=== PATIENT | male | born 1955 | race Caucasian/White ===

== ENCOUNTER 2019-06-25 13:16 | Emergency (ER) | payer OTHER ==
[~2019-06-25] VITALS: Ht 193 cm; Wt 125.6 kg
[2019-06-25] MEDS ORDERED: OMEPRAZOLE20 MG PO (13:34)
[2019-06-25] MEDS ORDERED: ATEN50 PO (13:34)
[2019-06-25] MEDS ORDERED: SALS750 PO (13:34)
[2019-06-25] MEDS ORDERED: Aspir 8181 MG PO (13:34)
[2019-06-25 13:43] LABS: BASOPHILS ABSOLUTE AUTO 0.02 K/mm3 (0.00-0.23); BASOPHILS PERCENT AUTO 0 % (0-2); EOSINOPHILS ABSOLUTE AUTO 0.43 K/mm3 (0.00-0.68); EOSINOPHILS PERCENT AUTO 7 % (0-6); Hematocrit 44.9 % (37.0-53.0); Hemoglobin 14.8 g/dL (13.5-17.5); IMMATURE GRAN ABSOLUTE AUTO 0.07 K/mm3 (0.00-0.10); IMMATURE GRAN PERCENT AUTO 1 % (0-1); LYMPHOCYTES ABSOLUTE AUTO 1.76 K/mm3 (0.84-5.20); LYMPHOCYTES PERCENT AUTO 30 % (21-46); MONOCYTES ABSOLUTE AUTO 0.58 K/mm3 (0.16-1.47); MONOCYTES PERCENT AUTO 10 % (4-13); Mean Corpuscular Volume 97 fL (80-100); Mean Platelet Volume 10.4 fL (9.1-12.4); NEUTROPHILS ABSOLUTE AUTO 2.94 K/mm3 (1.96-9.15); NEUTROPHILS PERCENT AUTO 51 % (41-73); Platelet Count 247 K/mm3 (150-400); RDW Coefficient Variation 12.3 % (11.7-14.2); RDW Standard Deviation 44.1 fL (35.1-46.3); Red Blood Cell Count 4.62 M/mm3 (4.30-5.90)
[2019-06-25 13:58] LABS: Alanine Aminotransfer (ALT/SGP 57 U/L (12-78); Albumin, Blood 4.1 g/dL (3.4-5.0); Albumin/Globulin Ratio 1.1 (0.8-1.8); Alk Phos 64 U/L (50-136); Anion Gap 5 mmol/L (6-16); Aspartate Aminotrans (AST/SGOT 27 U/L (12-37); Bilirubin, Total 0.5 mg/dL (0.1-1.0); Blood Urea Nitrogen 16 mg/dL (8-24); Bun/Creatinine Ratio 17.3 (12.0-20.0); CO2, Blood 26 mmol/L (21-32); Calcium, Blood 9.2 mg/dL (8.5-10.1); Chloride, Blood 107 mmol/L (98-108); Creatinine, Blood 0.93 mg/dL (0.60-1.20); Globulin, Blood 3.7 g/dL (2.2-4.0); Glomerular Filtration Rate >60 (60-); Glucose, Blood 78 mg/dL (70-99); Potassium, Blood 4.2 mmol/L (3.5-5.5); Sodium, Blood 138 mmol/L (136-145); Total Protein, Blood 7.8 g/dL (6.4-8.2)
== END 2019-06-25 17:05 | disposition home or self-care (01) ==
LOC: ER 13:16
PROVIDERS: Emergency Medicine
DX: R42 Dizziness and giddiness (principal); Z79.899 Other long term (current) drug therapy; Z79.82 Long term (current) use of aspirin; I10 Essential (primary) hypertension; K21.9 Gastro-esophageal reflux disease without esophagitis
CPT/HCPCS: 71046; 80053; 83880; 84484; 85025; 93005; 93010; 96360; 99284-25; J7030

== ENCOUNTER 2023-07-31 13:10 | Day surgery (SDC) | payer OTHER ==
[~2023-07-31] VITALS: Ht 193 cm; Wt 120.0 kg
[~2023-07-31 13:10] MED LIST: ATEN50 PO; Aspir 8181 MG PO; GABA300 PO; OMEPRAZOLE20 MG PO; SALS750 PO
[2023-07-31] MEDS ORDERED: FAMO20 PO (14:04)
[2023-07-31] MEDS ORDERED: Prozac20 MG PO (14:23)
[2023-07-31] MEDS ORDERED: Bupropion HCl75 MG PO (14:24)
[2023-07-31] MEDS ORDERED: AMLO5 PO (14:25)
[2023-07-31] MEDS ORDERED: ROSU10TA PO (14:25)
[2023-07-31 15:16] VITALS: BP 136/91
--- NOTE | 2023-07-31 15:23 | NUR ---
07/31/23 1523 JAVIER ISAAC IV REMOVED. WNL. NOHEMY WELL. CANNULA INTACT
== END 2023-07-31 15:36 | disposition home or self-care (01) ==
LOC: ORSCSDS 13:10
PROVIDERS: Ophthalmology
PROC: 08RJ3JZ Replacement of Right Lens with Synthetic Substitute, Percutaneous Approach (ICD-10-PCS; principal; 2023-07-31 14:30)
DX: H25.13 Age-related nuclear cataract, bilateral (principal); I12.9 Hypertensive chronic kidney disease with stage 1 through stage 4 chronic kidney disease, or unspecified chronic kidney disease; G62.9 Polyneuropathy, unspecified; N18.2 Chronic kidney disease, stage 2 (mild); E66.9 Obesity, unspecified; Z68.32 Body mass index [BMI] 32.0-32.9, adult; Z87.891 Personal history of nicotine dependence; I73.89 Other specified peripheral vascular diseases
CPT/HCPCS: J2250; J3010; J3301; J7040; V2632

== ENCOUNTER 2023-08-07 13:14 | Day surgery (SDC) | payer OTHER ==
[~2023-08-07] VITALS: Ht 193 cm; Wt 121.8 kg
[~2023-08-07 13:14] MED LIST changes: +AMLO5 PO; +Bupropion HCl75 MG PO; +FAMO20 PO; +Prozac20 MG PO; +ROSU10TA PO
--- NOTE | 2023-08-07 13:39 | NUR ---
08/07/23 1339 Judy Oakes [address]3 [address] AT 1336
[2023-08-07 14:53] VITALS: BP 150/95
--- NOTE | 2023-08-07 14:54 | NUR ---
08/07/23 1454 JAVIER ISAAC IV REMOVED. NOHEMY WELL. CANNULA INTACT. WNL
== END 2023-08-07 15:05 | disposition home or self-care (01) ==
LOC: ORSCSDS 13:14
PROVIDERS: Ophthalmology
PROC: 08RK3JZ Replacement of Left Lens with Synthetic Substitute, Percutaneous Approach (ICD-10-PCS; principal; 2023-08-07 14:30)
DX: H25.12 Age-related nuclear cataract, left eye (principal); H52.202 Unspecified astigmatism, left eye; Z96.1 Presence of intraocular lens; I12.9 Hypertensive chronic kidney disease with stage 1 through stage 4 chronic kidney disease, or unspecified chronic kidney disease; N18.2 Chronic kidney disease, stage 2 (mild); Z79.82 Long term (current) use of aspirin; Z79.899 Other long term (current) drug therapy
CPT/HCPCS: J2250; J3010; J3301; J7040; V2632

== ENCOUNTER 2024-08-07 13:15 | Emergency (ER) | payer OTHER ==
[~2024-08-07] VITALS: Ht 193 cm; Wt 121.5 kg
[2024-08-07 13:55] LABS: BASOPHILS ABSOLUTE AUTO 0.02 K/mm3 (0.00-0.23); BASOPHILS PERCENT AUTO 0 % (0-2); EOSINOPHILS ABSOLUTE AUTO 0.24 K/mm3 (0.00-0.68); EOSINOPHILS PERCENT AUTO 4 % (0-6); Hematocrit 42.2 % (37.0-53.0); Hemoglobin 13.9 g/dL (13.5-17.5); IMMATURE GRAN ABSOLUTE AUTO 0.03 K/mm3 (0.00-0.10); IMMATURE GRAN PERCENT AUTO 1 % (0-1); LYMPHOCYTES ABSOLUTE AUTO 0.82 K/mm3 (0.84-5.20); LYMPHOCYTES PERCENT AUTO 14 % (21-46); MONOCYTES ABSOLUTE AUTO 0.62 K/mm3 (0.16-1.47); MONOCYTES PERCENT AUTO 11 % (4-13); Mean Corpuscular HGB 32.1 pg (26.0-34.0); Mean Corpuscular HGB Conc 32.9 g/dL (31.5-36.5); Mean Corpuscular Volume 98 fL (80-100); Mean Platelet Volume 9.4 fL (9.1-12.4); NEUTROPHILS ABSOLUTE AUTO 4.02 K/mm3 (1.96-9.15); NEUTROPHILS PERCENT AUTO 70 % (41-73); Platelet Count 239 K/mm3 (150-400); RDW Coefficient Variation 12.5 % (11.7-14.2); Red Blood Cell Count 4.33 M/mm3 (4.30-5.90); White Blood Cell Count 5.75 K/mm3 (4.00-11.30)
[2024-08-07 14:14] LABS: Albumin, Blood 4.2 g/dL (3.4-5.0); Albumin/Globulin Ratio 1.2 (0.8-1.8); Bilirubin, Total 1.4 mg/dL (0.1-1.0); Bun/Creatinine Ratio 13.2 (12.0-20.0); Calcium, Blood 9.8 mg/dL (8.5-10.1); Creatinine, Blood 1.29 mg/dL (0.60-1.20); Globulin, Blood 3.6 g/dL (2.2-4.0); Potassium, Blood 4.4 mmol/L (3.5-5.5); Total Protein, Blood 7.8 g/dL (6.4-8.2)
[2024-08-07] MEDS ORDERED: LORATADINE10 M1 PO (15:36)
[2024-08-07] MEDS ORDERED: Budeprion Xl300 MG PO (15:36)
[2024-08-07] MEDS ORDERED: ASPI81CH PO (15:36)
[2024-08-07] MEDS ORDERED: Crestor40 MG PO (15:37)
[2024-08-07] MEDS ORDERED: ERGO400 PO (15:37)
[2024-08-07] MEDS ORDERED: FLUOXETINE HCL20 MG PO (15:37)
[2024-08-07] MEDS ORDERED: Meclizine HCl 25 MG Tab PO ONE (16:05)
[2024-08-07] MEDS ORDERED: MECL25 PO (17:26)
[2024-08-07 18:02] VITALS: BP 143/81
== END 2024-08-07 18:05 | disposition home or self-care (01) ==
LOC: ER 13:15
PROVIDERS: Physician Assistant
DX: H83.09 Labyrinthitis, unspecified ear (principal); Z79.82 Long term (current) use of aspirin; Z79.899 Other long term (current) drug therapy
CPT/HCPCS: 71046; 80053; 83880; 84484; 85025; 93005; 93010; 99284-25; A9270